=== PATIENT | male | born 1930 | race Caucasian/White ===

== ENCOUNTER 2017-09-20 06:59 | Inpatient (IN) ==
[2017-09-20] MEDS ORDERED: FUROSEMIDE 100 MG/10 ML VIAL IV STA (07:43)
[2017-09-20 08:14] LABS: Basophils # 0.1 10*3/uL (0.0-0.2); Eosinophils # 0.2 10*3/uL (0.0-0.87); Eosinophils % 2.2 % (0.00-10.9); Hematocrit 47.2 VOL% (42.0-52.0); Hemoglobin 15.1 GM/DL (14.0-18.0); Immature Granulocytes % 0.5 %; Immature Granulocytes Absolute 0.05 #; Lymphocytes # 2.2 10*3/uL (1.4-4.0); Lymphocytes % 21.5 % (21.2-54.2); Mean Corpuscular Hemoglobin 29 PG (27-34); Mean Corpuscular Volume 90.8 FL (87-102); Mean Platelet Volume 13.9 FL (9.6-12.0); Monocytes # 0.8 10*3/uL (0.11-0.8); Monocytes % 7.4 % (1.7-12.7); Neutrophils # 6.8 10*3/uL (1.4-7.4); Neutrophils % 67.4 % (38.7-73.9); Platelet Count 159 T/CUMM (130-400); Red Cell Distribution Width 12.5 % (9.3-17.3); White Blood Count 10.1 T/CUMM (4-12)
[2017-09-20 08:25] LABS: PT Patient Result 10.7 SECS
[2017-09-20 08:30] LABS: Albumin 3.5 G/DL (3.4-5.0); Bilirubin,Total 0.4 MG/DL (0.2-1.0); Calcium 8.9 MG/DL (8.5-10.1); Potassium 4.6 MMOL/L (3.5-5.1); Total Protein 7.3 G/DL (6.4-8.3)
[2017-09-20] MEDS ORDERED: FEXOFENADINE 180 MG TABLET PO PRN (09:00)
[2017-09-20] MEDS ORDERED: ACETAMINOPHEN 325 MG TABLET PO PRN (09:56)
[2017-09-20] MEDS ORDERED: ONDANSETRON 4 MG/2 ML VIAL IV PRN (09:56)
[2017-09-20] MEDS ORDERED: ZALEPLON 5 MG CAPSULE PO PRN (09:56)
[2017-09-20] MEDS ORDERED: MAGNESIUM SULF RIDER 4 GM in PREMIX 1 EACH IV PRN ×2 (09:56→17:06)
[2017-09-20] MEDS ORDERED: BISACODYL 5 MG TABLET PO PRN (09:56)
[2017-09-20] MEDS ORDERED: guaiFENesin/DM ER 600-30 MG TABLET PO PRN (09:56)
[2017-09-20] MEDS ORDERED: MAGNESIUM SULF RIDER 2 GM in PREMIX 1 EACH IV PRN ×2 (09:56→17:06)
[2017-09-20] MEDS ORDERED: ENOXAPARIN 80 MG/0.8 ML SYRINGE SUBCUT ONE (10:01)
[2017-09-20] MEDS ORDERED: POTASSIUM CHLORIDE 20 MEQ TABLET PO PRN (10:02)
[2017-09-20] MEDS ORDERED: DEXTROSE 50% 25 GM/50 ML VIAL IV PRN (10:08)
[2017-09-20] MEDS ORDERED: GLUCAGON 1 MG VIAL IM PRN (10:08)
[2017-09-20] MEDS ORDERED: FAMOTIDINE 20 MG/2 ML VIAL IV SCH (10:30)
[2017-09-20] MEDS: methylPREDNISolone SOD SUC 40 MG/1 ML VIAL IV SCH ×2 (10:38→20:31)
[2017-09-20] MEDS: diphenhydrAMINE CAP 50 MG CAPSULE PO SCH ×2 (10:38→20:30)
[2017-09-20] MEDS ORDERED: DIAZEPAM 5 MG TABLET PO ONE (14:06)
[2017-09-20] MEDS ORDERED: ASPIRIN 325 MG TABLET PO ONE (14:06)
[2017-09-20] MEDS ORDERED: fentaNYL 100 MCG/2 ML VIAL ONE (14:14)
[2017-09-20] MEDS ORDERED: MIDAZOLAM 2 MG/2 ML VIAL ONE (14:14)
[2017-09-20] MEDS ORDERED: SODIUM CHLORIDE 0.9% 1,000 ML IV SCH (14:30)
[2017-09-20] MEDS ORDERED: HEPARIN/NACL 0.9% 2 UNITS/ML 500 ML IV ONE (15:09)
[2017-09-20] MEDS ORDERED: TIROFIBAN 5,000 MCG/100 ML PREMIX IV ONE (15:30)
[2017-09-20] MEDS ORDERED: TIROFIBAN 5,000 MCG/100 ML PREMIX IV SCH (15:38)
[2017-09-20] MEDS ORDERED: HEPARIN 5,000 UNIT/1 ML VIAL ONE (15:41)
[2017-09-20] MEDS ORDERED: FUROSEMIDE 40 MG/4 ML VIAL IV ONE (16:00)
[2017-09-20] MEDS ORDERED: CLOPIDOGREL 300 MG TABLET ONE (16:31)
[2017-09-20] MEDS ORDERED: NIFEdipine 10 MG CAPSULE PO ONE (17:55)
[2017-09-20] MEDS ORDERED: CAPTOPRIL 25 MG TABLET PO ONE (18:02)
[2017-09-20] MEDS ORDERED: NIFEdipine 10 MG CAPSULE PO PRN (18:05)
[2017-09-20] MEDS: INSULIN LISPRO 100 UNIT/ML SUBCUT SCH ×2 (18:32→20:31)
[2017-09-20] MEDS: ROSUVASTATIN 10 MG TABLET PO SCH (20:30)
[2017-09-20] MEDS: MULTIVITAMIN (OCUVITE) TABLET PO SCH (20:31)
[2017-09-20] MEDS: CARVEDILOL 3.125 MG TABLET PO SCH (20:31)
[2017-09-20] MEDS: FAMOTIDINE 20 MG TABLET PO SCH (20:31)
[2017-09-20] MEDS ORDERED: ASPIRIN EC 81 MG TABLET PO SCH (21:00)
[2017-09-20] MEDS ORDERED: CLOPIDOGREL 75 MG TABLET PO SCH (21:00)
[2017-09-21] MEDS: CAPTOPRIL 25 MG TABLET PO SCH ×3 (00:57→13:28)
[2017-09-21 01:00] LABS: Apearance,Urine CLEAR (Clear); Bacteria,Urine Occasional /HPF (Few); Bilirubin,Urine Negative (Negative); Blood, Urine Moderate mg/dL (Negative); Glucose,Urine (UA) 150 mg/dL (Negative); Ketones,Urine 5 mg/dL (Negative); Nitrite,Urine Negative (Negative); Protein,Urine Negative; RBC,Urine 9 /HPF (0-4); Urine Color Straw (Yellow); Urine Specific Gravity 1.011 (1.001-1.035); Urine Urobilinogen < 2.0 EU/DL (0.2-1.0); WBC,Urine 1 /HPF (0-6)
[2017-09-21 01:25] LABS: Basophils # 0.1 10*3/uL (0.0-0.2); Basophils % 0.3 % (0.0-0.8); Hematocrit 44.5 VOL% (42.0-52.0); Hemoglobin 14.6 GM/DL (14.0-18.0); Immature Granulocytes % 0.6 %; Lymphocytes # 1.4 10*3/uL (1.4-4.0); Lymphocytes % 9.1 % (21.2-54.2); Mean Corpuscular HGB Conc 32.8 GM/DL (32-36); Mean Corpuscular Hemoglobin 30 PG (27-34); Mean Corpuscular Volume 90.1 FL (87-102); Monocytes # 0.2 10*3/uL (0.11-0.8); Monocytes % 1.5 % (1.7-12.7); Neutrophils # 13.8 10*3/uL (1.4-7.4); Neutrophils % 88.5 % (38.7-73.9); Platelet Count 176 T/CUMM (130-400); Red Blood Count 4.94 MC/CUMM (3.8-5.5); Red Cell Distribution Width 12.4 % (9.3-17.3); White Blood Count 15.6 T/CUMM (4-12)
[2017-09-21 02:01] LABS: Risk Ratio 4.03; VLDL CHOLESTEROL 27.4 MG/DL
[2017-09-21 02:02] LABS: Albumin 3.2 G/DL (3.4-5.0); Bilirubin,Total 0.5 MG/DL (0.2-1.0); Calcium 8.2 MG/DL (8.5-10.1); Osmolality,Calculated 286.5 MOS/KG (273-304); Potassium 4.2 MMOL/L (3.5-5.1); Total Protein 6.4 G/DL (6.4-8.3)
[2017-09-21] MEDS ORDERED: ENOXAPARIN 60 MG/0.6 ML SYRINGE SUBCUT ONE (06:00)
[2017-09-21] MEDS: INSULIN LISPRO 100 UNIT/ML SUBCUT SCH ×4 (08:03→21:21)
[2017-09-21] MEDS: CARVEDILOL 3.125 MG TABLET PO SCH (08:04)
[2017-09-21] MEDS: CLOPIDOGREL 75 MG TABLET PO SCH (08:04)
[2017-09-21] MEDS: FAMOTIDINE 20 MG TABLET PO SCH ×2 (08:04→21:20)
[2017-09-21] MEDS: methylPREDNISolone SOD SUC 40 MG/1 ML VIAL IV SCH (08:04)
[2017-09-21] MEDS: FUROSEMIDE 20 MG/2 ML VIAL IV SCH (08:04)
[2017-09-21] MEDS: diphenhydrAMINE CAP 50 MG CAPSULE PO SCH ×2 (08:05→21:20)
[2017-09-21] MEDS ORDERED: FUROSEMIDE 40 MG TABLET PO SCH (09:00)
[2017-09-21] MEDS ORDERED: CAPTOPRIL 6.25 MG TABLET PO SCH (09:00)
[2017-09-21] MEDS ORDERED: PANTOPRAZOLE 40 MG TABLET PO SCH (09:00)
[2017-09-21] MEDS ORDERED: ASPIRIN CHEW 81 MG TABLET PO SCH (09:00)
[2017-09-21] MEDS ORDERED: ASPIRIN EC 81 MG TABLET PO SCH (09:00)
[2017-09-21] MEDS ORDERED: ACEBUTOLOL 400 MG CAPSULE PO SCH (09:00)
[2017-09-21] MEDS ORDERED: LISINOPRIL 5 MG TABLET PO SCH (09:00)
[2017-09-21] MEDS ORDERED: ASPIRIN CHEW 81 MG TABLET PO ONE (09:00)
[2017-09-21] MEDS ORDERED: ALUM/MAG/SIMETH/LIDO VISC 1:1 30 ML BOTTLE PO ONE (18:16)
[2017-09-21] MEDS ORDERED: NITROGLYCERIN SL 0.4 MG TABLET SL PRN (18:31)
[2017-09-21] MEDS ORDERED: ALUM/MAG/SIMETH/LIDO VISC 1:1 30 ML BOTTLE PO PRN (18:32)
[2017-09-21] MEDS: CARVEDILOL 6.25 MG TABLET PO SCH (18:53)
[2017-09-21] MEDS: GABAPENTIN 100 MG CAPSULE PO SCH ×2 (18:53→21:20)
[2017-09-21] MEDS: PANTOPRAZOLE 40 MG TABLET PO SCH (18:53)
[2017-09-21] MEDS: HYOSCYAMINE 0.125 MG TABLET SL SCH ×2 (18:53→21:20)
[2017-09-21] MEDS: ACETAMINOPHEN 325 MG TABLET PO SCH ×2 (18:53→21:20)
[2017-09-21] MEDS: MULTIVITAMIN (OCUVITE) TABLET PO SCH (21:20)
[2017-09-21] MEDS: CAPTOPRIL 12.5 MG TABLET PO SCH (21:21)
[2017-09-21] MEDS: ROSUVASTATIN 10 MG TABLET PO SCH (21:21)
[2017-09-22 00:59] LABS: Basophils # 0.1 10*3/uL (0.0-0.2); Basophils % 0.3 % (0.0-0.8); Hematocrit 41.1 VOL% (42.0-52.0); Hemoglobin 13.5 GM/DL (14.0-18.0); Immature Granulocytes % 0.5 %; Lymphocytes # 2.3 10*3/uL (1.4-4.0); Lymphocytes % 12.4 % (21.2-54.2); Mean Corpuscular HGB Conc 32.8 GM/DL (32-36); Mean Corpuscular Hemoglobin 30 PG (27-34); Mean Corpuscular Volume 90.7 FL (87-102); Mean Platelet Volume 14.1 FL (9.6-12.0); Monocytes # 1.8 10*3/uL (0.11-0.8); Monocytes % 9.8 % (1.7-12.7); Neutrophils # 14.5 10*3/uL (1.4-7.4); Platelet Count 156 T/CUMM (130-400); Red Blood Count 4.53 MC/CUMM (3.8-5.5); Red Cell Distribution Width 12.6 % (9.3-17.3); White Blood Count 18.8 T/CUMM (4-12)
[2017-09-22 01:17] LABS: Albumin 2.9 G/DL (3.4-5.0); Bilirubin,Total 0.5 MG/DL (0.2-1.0); Calcium 8.3 MG/DL (8.5-10.1); Osmolality,Calculated 284.7 MOS/KG (273-304); Potassium 4.3 MMOL/L (3.5-5.1)
[2017-09-22] MEDS: CARVEDILOL 6.25 MG TABLET PO SCH ×4 (03:18→17:50)
[2017-09-22 07:44] LABS: CKMB % 6.5 %
[2017-09-22] MEDS: ACETAMINOPHEN 325 MG TABLET PO SCH ×2 (08:40→21:42)
[2017-09-22] MEDS: INSULIN LISPRO 100 UNIT/ML SUBCUT SCH ×4 (08:40→21:41)
[2017-09-22] MEDS: FAMOTIDINE 20 MG TABLET PO SCH (08:40)
[2017-09-22] MEDS: GABAPENTIN 100 MG CAPSULE PO SCH ×3 (08:40→21:34)
[2017-09-22] MEDS: HYOSCYAMINE 0.125 MG TABLET SL SCH ×2 (08:40→21:42)
[2017-09-22] MEDS: PANTOPRAZOLE 40 MG TABLET PO SCH ×2 (08:40→21:34)
[2017-09-22] MEDS: diphenhydrAMINE CAP 50 MG CAPSULE PO SCH (08:40)
[2017-09-22] MEDS: FUROSEMIDE 20 MG/2 ML VIAL IV SCH (08:40)
[2017-09-22] MEDS: CAPTOPRIL 12.5 MG TABLET PO SCH ×2 (08:42→15:34)
[2017-09-22] MEDS: CLOPIDOGREL 75 MG TABLET PO SCH (08:42)
[2017-09-22] MEDS: ROSUVASTATIN 10 MG TABLET PO SCH (21:34)
[2017-09-22] MEDS: CAPTOPRIL 6.25 MG TABLET PO SCH (21:34)
[2017-09-22] MEDS: MULTIVITAMIN (OCUVITE) TABLET PO SCH (21:34)
[2017-09-23] MEDS: CARVEDILOL 6.25 MG TABLET PO SCH ×3 (00:50→12:45)
[2017-09-23 06:17] LABS: Basophils # 0.1 10*3/uL (0.0-0.2); Basophils % 0.8 % (0.0-0.8); Eosinophils # 0.2 10*3/uL (0.0-0.87); Eosinophils % 1.3 % (0.00-10.9); Hematocrit 44.8 VOL% (42.0-52.0); Hemoglobin 14.2 GM/DL (14.0-18.0); Immature Granulocytes % 0.9 %; Immature Granulocytes Absolute 0.12 #; Lymphocytes # 2.8 10*3/uL (1.4-4.0); Lymphocytes % 22.4 % (21.2-54.2); Mean Corpuscular HGB Conc 31.7 GM/DL (32-36); Mean Corpuscular Hemoglobin 29 PG (27-34); Mean Corpuscular Volume 92.6 FL (87-102); Mean Platelet Volume 14.1 FL (9.6-12.0); Monocytes # 1.3 10*3/uL (0.11-0.8); Monocytes % 9.9 % (1.7-12.7); Neutrophils # 8.2 10*3/uL (1.4-7.4); Neutrophils % 64.7 % (38.7-73.9); Platelet Count 123 T/CUMM (130-400); Red Blood Count 4.84 MC/CUMM (3.8-5.5); Red Cell Distribution Width 12.6 % (9.3-17.3); White Blood Count 12.6 T/CUMM (4-12)
[2017-09-23 06:51] LABS: Albumin 3.1 G/DL (3.4-5.0); Bilirubin,Total 0.7 MG/DL (0.2-1.0); Calcium 8.4 MG/DL (8.5-10.1); Total Protein 6.1 G/DL (6.4-8.3)
[2017-09-23 06:52] LABS: Osmolality,Calculated 281.7 MOS/KG (273-304); Potassium 4.5 MMOL/L (3.5-5.1)
[2017-09-23 06:54] LABS: Hypochromasia Slight; Platelet Estimate Decreased
[2017-09-23] MEDS: PANTOPRAZOLE 40 MG TABLET PO SCH (09:02)
[2017-09-23] MEDS: CAPTOPRIL 6.25 MG TABLET PO SCH ×2 (09:02→15:57)
[2017-09-23] MEDS: GABAPENTIN 100 MG CAPSULE PO SCH ×2 (09:02→15:57)
[2017-09-23] MEDS: CLOPIDOGREL 75 MG TABLET PO SCH (09:02)
[2017-09-23] MEDS: ACETAMINOPHEN 325 MG TABLET PO SCH (09:02)
[2017-09-23] MEDS: FUROSEMIDE 20 MG/2 ML VIAL IV SCH (09:04)
[2017-09-23] MEDS: INSULIN LISPRO 100 UNIT/ML SUBCUT SCH ×3 (09:04→16:57)
[2017-09-23] MEDS: HYOSCYAMINE 0.125 MG TABLET SL SCH (10:13)
[2017-09-23 16:23] VITALS: BP 130/66
[2017-09-24] MEDS ORDERED: FUROSEMIDE 20 MG TABLET PO SCH (09:00)
== END 2017-09-23 17:59 | disposition home or self-care (01) | DRG 270 ==
LOC: N.ED 06:59 → N.EDINP 09:56 → N.ICU 17:30 → N.TELEN 09-22 18:30
PROVIDERS: ADMIT Internal Medicine Cardiovascular Disease; ATTEND Internal Medicine Cardiovascular Disease

== ENCOUNTER 2017-12-08 13:30 | Inpatient (IN) ==
[2017-12-08] MEDS ORDERED: ALUM/MAG/SIMETH/LIDO VISC 1:1 30 ML BOTTLE PO STA (13:45)
[2017-12-08] MEDS ORDERED: ASPIRIN 325 MG TABLET PO STA (13:45)
[2017-12-08] MEDS ORDERED: MORPHINE 4 MG/1 ML VIAL IV STA (13:45)
[2017-12-08] MEDS ORDERED: ENOXAPARIN 100 MG/ML SYRINGE SUBCUT STA (13:45)
[2017-12-08] MEDS ORDERED: NITROGLYCERIN 2% OINT 1 INCH/GM PACK TOP STA (13:45)
[2017-12-08] MEDS ORDERED: ONDANSETRON 4 MG/2 ML VIAL IV STA (13:45)
[2017-12-08] MEDS ORDERED: METOPROLOL TARTRATE 25 MG TABLET PO STA (13:45)
[2017-12-08 14:12] LABS: Basophils # 0.1 10*3/uL (0.0-0.2); Basophils % 0.8 % (0.0-0.8); Eosinophils # 0.3 10*3/uL (0.0-0.87); Eosinophils % 2.7 % (0.00-10.9); Hematocrit 46.1 VOL% (42.0-52.0); Hemoglobin 14.8 GM/DL (14.0-18.0); Immature Granulocytes % 0.3 %; Immature Granulocytes Absolute 0.03 #; Lymphocytes # 2.4 10*3/uL (1.4-4.0); Lymphocytes % 24.2 % (21.2-54.2); Mean Corpuscular HGB Conc 32.1 GM/DL (32-36); Mean Corpuscular Hemoglobin 28 PG (27-34); Mean Corpuscular Volume 86.5 FL (87-102); Mean Platelet Volume 13.6 FL (9.6-12.0); Monocytes # 0.9 10*3/uL (0.11-0.8); Monocytes % 9.5 % (1.7-12.7); Neutrophils # 6.1 10*3/uL (1.4-7.4); Neutrophils % 62.5 % (38.7-73.9); Platelet Count 181 T/CUMM (130-400); Red Blood Count 5.33 MC/CUMM (3.8-5.5); Red Cell Distribution Width 12.6 % (9.3-17.3); White Blood Count 9.8 T/CUMM (4-12)
[2017-12-08 14:21] LABS: INR 1.1; PT Patient Result 11.1 SECS
[2017-12-08 14:48] LABS: Apearance,Urine CLEAR (Clear); Bacteria,Urine Occasional /HPF (Few); Bilirubin,Urine Negative (Negative); Blood, Urine Negative (Negative); Glucose,Urine (UA) >=500 mg/dL (Negative); Hyaline Casts,Urine 11 /LPF (0-3); Ketones,Urine 5 mg/dL (Negative); Mucus,Urine Occasional /LPF (Occasional); Nitrite,Urine Negative (Negative); Protein,Urine Negative; Urine Color Yellow (Yellow); Urine Specific Gravity 1.009 (1.001-1.035); Urine Urobilinogen < 2.0 EU/DL (0.2-1.0); WBC,Urine <1 /HPF (0-6)
[2017-12-08 15:10] LABS: Alanine Aminotransferase 14 U/L (16-61); Albumin 3.4 G/DL (3.4-5.0); Alkaline Phosphatase 84 U/L (45-117); Aspartate Amino Transferase 11 U/L (0-37); Bilirubin,Total < 0.39 MG/DL (0.2-1.0); Blood Urea Nitrogen 21 MG/DL (7-18); Glucose 222 MG/DL (74-106); Osmolality,Calculated 284.7 MOS/KG (273-304); Potassium 3.8 MMOL/L (3.5-5.1); Sodium 138 MMOL/L (136-145); Total Protein 7.3 G/DL (6.4-8.3)
[2017-12-08] MEDS ORDERED: FUROSEMIDE 40 MG/4 ML VIAL IV STA (15:13)
[2017-12-08] MEDS ORDERED: ONDANSETRON 4 MG/2 ML VIAL IV PRN (21:30)
[2017-12-08] MEDS ORDERED: GLUCAGON 1 MG VIAL IM PRN (21:30)
[2017-12-08] MEDS ORDERED: ASPIRIN EC 325 MG TABLET PO SCH (21:30)
[2017-12-08] MEDS ORDERED: FEXOFENADINE 180 MG TABLET PO PRN (21:30)
[2017-12-08] MEDS ORDERED: MORPHINE 4 MG/1 ML VIAL IV PRN (21:30)
[2017-12-08] MEDS ORDERED: POTASSIUM CHLORIDE 20 MEQ TABLET PO PRN (21:30)
[2017-12-08] MEDS ORDERED: MAGNESIUM SULF RIDER 2 GM in PREMIX 1 EACH IV PRN (21:30)
[2017-12-08] MEDS ORDERED: DEXTROSE 50% 25 GM/50 ML VIAL IV PRN (21:30)
[2017-12-08] MEDS ORDERED: NITROGLYCERIN SL 0.4 MG TABLET SL PRN (21:30)
[2017-12-08] MEDS ORDERED: MAGNESIUM SULF RIDER 4 GM in PREMIX 1 EACH IV PRN (21:30)
[2017-12-08] MEDS: CARVEDILOL 12.5 MG TABLET PO SCH (22:50)
[2017-12-08] MEDS: ROSUVASTATIN 10 MG TABLET PO SCH (22:50)
[2017-12-08] MEDS: MULTIVITAMIN (OCUVITE) TABLET PO SCH (22:51)
[2017-12-08] MEDS: CLOPIDOGREL 75 MG TABLET PO SCH (22:51)
[2017-12-08] MEDS: metFORMIN 500 MG TABLET PO SCH (22:51)
[2017-12-08] MEDS: FUROSEMIDE 40 MG/4 ML VIAL IV SCH (22:51)
[2017-12-08] MEDS: ENALAPRIL 2.5 MG TABLET PO SCH (22:52)
[2017-12-08] MEDS: INSULIN REGULAR 100 UNIT/ML SUBCUT SCH (22:52)
[2017-12-09 05:09] LABS: Basophils # 0.1 10*3/uL (0.0-0.2); Basophils % 1.2 % (0.0-0.8); Eosinophils # 0.3 10*3/uL (0.0-0.87); Eosinophils % 3.1 % (0.00-10.9); Hemoglobin 13.2 GM/DL (14.0-18.0); Immature Granulocytes % 0.4 %; Immature Granulocytes Absolute 0.03 #; Lymphocytes % 24.1 % (21.2-54.2); Mean Corpuscular HGB Conc 31.4 GM/DL (32-36); Mean Corpuscular Hemoglobin 28 PG (27-34); Mean Corpuscular Volume 88.8 FL (87-102); Mean Platelet Volume 13.8 FL (9.6-12.0); Monocytes # 0.8 10*3/uL (0.11-0.8); Monocytes % 9.2 % (1.7-12.7); Neutrophils # 5.2 10*3/uL (1.4-7.4); Platelet Count 152 T/CUMM (130-400); Red Blood Count 4.73 MC/CUMM (3.8-5.5); Red Cell Distribution Width 12.5 % (9.3-17.3); White Blood Count 8.4 T/CUMM (4-12)
[2017-12-09 05:42] LABS: Alanine Aminotransferase 11 U/L (16-61); Albumin 2.9 G/DL (3.4-5.0); Alkaline Phosphatase 73 U/L (45-117); Aspartate Amino Transferase 11 U/L (0-37); Bilirubin,Total < 0.39 MG/DL (0.2-1.0); Blood Urea Nitrogen 21 MG/DL (7-18); Calcium 8.5 MG/DL (8.5-10.1); Cholesterol 98 MG/DL (50-200); Glucose 183 MG/DL (74-106); HDL Cholesterol 26 MG/DL (40-60); Osmolality,Calculated 284.5 MOS/KG (273-304); Potassium 3.8 MMOL/L (3.5-5.1); Risk Ratio 3.77; Sodium 139 MMOL/L (136-145); Total Protein 6.1 G/DL (6.4-8.3); Triglycerides 143 MG/DL (2-150); Troponin I 0.263 NG/ML (0.00-0.045); VLDL CHOLESTEROL 28.6 MG/DL
[2017-12-09] MEDS ORDERED: ENOXAPARIN 40 MG/0.4 ML SYRINGE SUBCUT SCH (09:00)
[2017-12-09] MEDS ORDERED: NON-FORMULARY MEDICATION (Esomeprazole Magnesium [Nexium] 20 MG) PO SCH (09:00)
[2017-12-09] MEDS: ENALAPRIL 2.5 MG TABLET PO SCH ×2 (09:15→21:08)
[2017-12-09] MEDS: PANTOPRAZOLE 40 MG TABLET PO SCH (09:15)
[2017-12-09] MEDS: CARVEDILOL 12.5 MG TABLET PO SCH (09:16)
[2017-12-09] MEDS: FUROSEMIDE 40 MG/4 ML VIAL IV SCH ×2 (09:16→21:14)
[2017-12-09] MEDS: INSULIN REGULAR 100 UNIT/ML SUBCUT SCH ×4 (09:20→21:09)
[2017-12-09] MEDS: metFORMIN 500 MG TABLET PO SCH ×2 (09:20→16:38)
[2017-12-09] MEDS ORDERED: AMIODARONE 200 MG TABLET PO ONE (13:44)
[2017-12-09] MEDS: APIXABAN 2.5 MG TABLET PO SCH ×2 (14:42→21:08)
[2017-12-09] MEDS: glyBURIDE 2.5 MG TABLET PO SCH (16:37)
[2017-12-09] MEDS: CARVEDILOL 25 MG TABLET PO SCH (16:37)
[2017-12-09] MEDS: MAGNESIUM CHLORIDE 64 MG TABLET PO SCH (21:08)
[2017-12-09] MEDS: CLOPIDOGREL 75 MG TABLET PO SCH (21:08)
[2017-12-09] MEDS: ROSUVASTATIN 10 MG TABLET PO SCH (21:08)
[2017-12-09] MEDS: MULTIVITAMIN (OCUVITE) TABLET PO SCH (21:08)
[2017-12-09] MEDS: AMIODARONE 200 MG TABLET PO SCH (21:09)
[2017-12-10 05:15] LABS: Calcium 8.6 MG/DL (8.5-10.1); Osmolality,Calculated 279.8 MOS/KG (273-304); Potassium 3.7 MMOL/L (3.5-5.1)
[2017-12-10 08:02] VITALS: BP 115/59
[2017-12-10] MEDS: APIXABAN 2.5 MG TABLET PO SCH (08:55)
[2017-12-10] MEDS: glyBURIDE 2.5 MG TABLET PO SCH (08:55)
[2017-12-10] MEDS: PANTOPRAZOLE 40 MG TABLET PO SCH (08:55)
[2017-12-10] MEDS: MAGNESIUM CHLORIDE 64 MG TABLET PO SCH (08:55)
[2017-12-10] MEDS: AMIODARONE 200 MG TABLET PO SCH (08:55)
[2017-12-10] MEDS: CARVEDILOL 25 MG TABLET PO SCH (08:55)
[2017-12-10] MEDS: metFORMIN 500 MG TABLET PO SCH (08:55)
[2017-12-10] MEDS: ENALAPRIL 2.5 MG TABLET PO SCH (08:56)
[2017-12-10] MEDS: FUROSEMIDE 40 MG/4 ML VIAL IV SCH (08:56)
[2017-12-10] MEDS: INSULIN REGULAR 100 UNIT/ML SUBCUT SCH ×2 (09:12→14:06)
[2017-12-10] MEDS ORDERED: MAGNESIUM SULF RIDER 2 GM in PREMIX 1 EACH IV ONE (10:06)
[2017-12-10] MEDS ORDERED: MAGNESIUM CHLORIDE 64 MG TABLET PO SCH (21:00)
== END 2017-12-10 15:52 | disposition home or self-care (01) | DRG 293 ==
LOC: N.ED 13:30 → N.EDINP 15:14 → N.TELES 17:30 → N.EDINP 17:30 → N.TELES 19:30 → N.TELEN 19:30 → N.TELES 20:59
PROVIDERS: ADMIT Internal Medicine Cardiovascular Disease; ATTEND Internal Medicine Cardiovascular Disease

== ENCOUNTER 2018-06-19 11:32 | Observation (INO) ==
[2018-06-19 12:11] LABS: Basophils # 0.1 10*3/uL (0.0-0.2); Basophils % 0.8 % (0.0-0.8); Eosinophils # 0.3 10*3/uL (0.0-0.87); Eosinophils % 2.5 % (0.00-10.9); Hematocrit 41.8 VOL% (42.0-52.0); Hemoglobin 13.1 GM/DL (14.0-18.0); Immature Granulocytes % 0.3 %; Immature Granulocytes Absolute 0.03 #; Lymphocytes # 1.8 10*3/uL (1.4-4.0); Lymphocytes % 17.7 % (21.2-54.2); Mean Corpuscular HGB Conc 31.3 GM/DL (32-36); Mean Corpuscular Hemoglobin 28 PG (27-34); Mean Corpuscular Volume 90.5 FL (87-102); Mean Platelet Volume 12.6 FL (9.6-12.0); Monocytes # 1.1 10*3/uL (0.11-0.8); Monocytes % 11.1 % (1.7-12.7); Neutrophils # 6.9 10*3/uL (1.4-7.4); Neutrophils % 67.6 % (38.7-73.9); Platelet Count 236 T/CUMM (130-400); Red Blood Count 4.62 MC/CUMM (3.8-5.5); Red Cell Distribution Width 12.4 % (9.3-17.3); White Blood Count 10.2 T/CUMM (4-12)
[2018-06-19 12:20] LABS: INR 1.1; PT Patient Result 11.4 SECS
[2018-06-19 12:36] LABS: Alanine Aminotransferase 37 U/L (16-61); Albumin 3.2 G/DL (3.4-5.0); Alkaline Phosphatase 131 U/L (45-117); Aspartate Amino Transferase 28 U/L (0-37); Blood Urea Nitrogen 21 MG/DL (7-18); Glucose 242 MG/DL (74-106); Osmolality,Calculated 272.7 MOS/KG (273-304); Sodium 131 MMOL/L (136-145); Total Protein 7.4 G/DL (6.4-8.3)
[2018-06-19 12:37] LABS: Troponin I 0.056 NG/ML (0.00-0.045)
[2018-06-19] MEDS ORDERED: LEVOFLOXACIN INJ 750 MG in PREMIX 1 EACH IV STA (12:48)
[2018-06-19] MEDS ORDERED: FUROSEMIDE 40 MG/4 ML VIAL IV STA (13:01)
[2018-06-19] MEDS ORDERED: ACETAMINOPHEN 325 MG TABLET PO PRN (14:38)
[2018-06-19] MEDS ORDERED: NITROGLYCERIN SL 0.4 MG TABLET SL PRN (14:42)
[2018-06-19 15:54] LABS: Apearance,Urine CLEAR (Clear); Bilirubin,Urine Negative (Negative); Blood, Urine Negative (Negative); Glucose,Urine (UA) >=500 mg/dL (Negative); Hyaline Casts,Urine 1 /LPF (0-3); Ketones,Urine Negative (Negative); Mucus,Urine Occasional /LPF (Occasional); Nitrite,Urine Negative (Negative); Protein,Urine Negative; RBC,Urine 1 /HPF (0-4); Urine Color Straw (Yellow); Urine Specific Gravity 1.007 (1.001-1.035); Urine Urobilinogen < 2.0 EU/DL (0.2-1.0); WBC,Urine <1 /HPF (0-6)
[2018-06-19] MEDS: CARVEDILOL 25 MG TABLET PO SCH (18:32)
[2018-06-19] MEDS: MIDODRINE 5 MG TABLET PO SCH ×2 (20:24→21:40)
[2018-06-19] MEDS ORDERED: MULTIVITAMIN (OCUVITE) TABLET PO SCH (21:00)
[2018-06-19] MEDS ORDERED: IMIPRAMINE 25 MG TABLET PO SCH (21:00)
[2018-06-19] MEDS ORDERED: AMIODARONE 200 MG TABLET PO SCH (21:00)
[2018-06-19] MEDS ORDERED: ROSUVASTATIN 10 MG TABLET PO SCH (21:00)
[2018-06-19] MEDS ORDERED: CLOPIDOGREL 75 MG TABLET PO SCH (21:00)
[2018-06-19] MEDS: MAGNESIUM CHLORIDE 64 MG TABLET PO SCH (21:40)
[2018-06-19] MEDS: ENALAPRIL 2.5 MG TABLET PO SCH (21:41)
[2018-06-19] MEDS: APIXABAN 2.5 MG TABLET PO SCH (21:41)
[2018-06-20 05:48] LABS: Basophils # 0.1 10*3/uL (0.0-0.2); Basophils % 0.8 % (0.0-0.8); Eosinophils # 0.4 10*3/uL (0.0-0.87); Eosinophils % 3.9 % (0.00-10.9); Hematocrit 37.9 VOL% (42.0-52.0); Hemoglobin 11.8 GM/DL (14.0-18.0); Immature Granulocytes % 0.3 %; Immature Granulocytes Absolute 0.03 #; Lymphocytes # 2.1 10*3/uL (1.4-4.0); Lymphocytes % 23.1 % (21.2-54.2); Mean Corpuscular HGB Conc 31.1 GM/DL (32-36); Mean Corpuscular Hemoglobin 28 PG (27-34); Mean Corpuscular Volume 90.5 FL (87-102); Mean Platelet Volume 12.5 FL (9.6-12.0); Monocytes # 1.3 10*3/uL (0.11-0.8); Monocytes % 14.1 % (1.7-12.7); Neutrophils # 5.2 10*3/uL (1.4-7.4); Neutrophils % 57.8 % (38.7-73.9); Platelet Count 225 T/CUMM (130-400); Red Blood Count 4.19 MC/CUMM (3.8-5.5); Red Cell Distribution Width 12.2 % (9.3-17.3)
[2018-06-20 06:14] LABS: Calcium 8.7 MG/DL (8.5-10.1); Osmolality,Calculated 276.2 MOS/KG (273-304); Potassium 3.7 MMOL/L (3.5-5.1); Thyroid Stimulating Hormone 3.12 uIU/ml (0.358-3.74)
[2018-06-20] MEDS ORDERED: GLIMEPIRIDE 2 MG TABLET PO SCH (08:00)
[2018-06-20] MEDS ORDERED: FUROSEMIDE 40 MG/4 ML VIAL IV SCH ×2 (09:00)
[2018-06-20] MEDS ORDERED: PANTOPRAZOLE 40 MG TABLET PO SCH (09:00)
[2018-06-20] MEDS ORDERED: AMIODARONE 200 MG TABLET PO SCH (09:00)
[2018-06-20] MEDS: APIXABAN 2.5 MG TABLET PO SCH (09:52)
[2018-06-20] MEDS: MIDODRINE 5 MG TABLET PO SCH ×2 (09:52→14:50)
[2018-06-20] MEDS: MAGNESIUM CHLORIDE 64 MG TABLET PO SCH (09:52)
[2018-06-20] MEDS: CARVEDILOL 25 MG TABLET PO SCH (09:52)
[2018-06-20] MEDS: ENALAPRIL 2.5 MG TABLET PO SCH (13:05)
[2018-06-20 16:36] VITALS: BP 152/71
== END 2018-06-20 15:29 | disposition home or self-care (01) ==
LOC: N.ED 11:32 → N.EDINP 11:32 → SUATTDRO 14:00 → N.5E 17:29
PROVIDERS: ADMIT Internal Medicine Nephrology; ATTEND Hospitalist

== ENCOUNTER 2018-06-29 11:27 | Observation (INO) ==
[2018-06-29 12:38] LABS: Basophils # 0.1 10*3/uL (0.0-0.2); Eosinophils # 0.3 10*3/uL (0.0-0.87); Eosinophils % 3.4 % (0.00-10.9); Hematocrit 38.9 VOL% (42.0-52.0); Hemoglobin 12.1 GM/DL (14.0-18.0); Immature Granulocytes % 0.5 %; Immature Granulocytes Absolute 0.04 #; Lymphocytes # 1.8 10*3/uL (1.4-4.0); Lymphocytes % 21.3 % (21.2-54.2); Mean Corpuscular HGB Conc 31.1 GM/DL (32-36); Mean Corpuscular Hemoglobin 28 PG (27-34); Mean Corpuscular Volume 89.4 FL (87-102); Mean Platelet Volume 12.1 FL (9.6-12.0); Monocytes # 0.7 10*3/uL (0.11-0.8); Monocytes % 8.4 % (1.7-12.7); Neutrophils # 5.7 10*3/uL (1.4-7.4); Neutrophils % 65.4 % (38.7-73.9); Platelet Count 237 T/CUMM (130-400); Red Blood Count 4.35 MC/CUMM (3.8-5.5); Red Cell Distribution Width 12.4 % (9.3-17.3); White Blood Count 8.7 T/CUMM (4-12)
[2018-06-29 12:50] LABS: INR 1.1; PT Patient Result 12.2 SECS; Partial Thromboplastin Time 32.9 SECS (0-40)
[2018-06-29 13:02] LABS: Alanine Aminotransferase 50 U/L (16-61); Albumin 3.2 G/DL (3.4-5.0); Alkaline Phosphatase 127 U/L (45-117); Aspartate Amino Transferase 45 U/L (0-37); Bilirubin,Total < 0.39 MG/DL (0.2-1.0); Blood Urea Nitrogen 28 MG/DL (7-18); Calcium 8.3 MG/DL (8.5-10.1); Glucose 275 MG/DL (74-106); Osmolality,Calculated 277.7 MOS/KG (273-304); Potassium 4.1 MMOL/L (3.5-5.1); Sodium 131 MMOL/L (136-145); Total Protein 7.1 G/DL (6.4-8.3)
[2018-06-29] MEDS ORDERED: ONDANSETRON 4 MG/2 ML VIAL IV STA (13:15)
[2018-06-29] MEDS ORDERED: MORPHINE 4 MG/1 ML VIAL IV STA (13:15)
[2018-06-29] MEDS ORDERED: NITROGLYCERIN 2% OINT 1 INCH/GM PACK TOP STA (13:15)
[2018-06-29] MEDS ORDERED: MAGNESIUM SULF RIDER 4 GM in PREMIX 1 EACH IV PRN (14:54)
[2018-06-29] MEDS ORDERED: DOCUSATE SODIUM 100 MG CAPSULE PO PRN (14:54)
[2018-06-29] MEDS ORDERED: POTASSIUM CHLORIDE 20 MEQ TABLET PO PRN (14:54)
[2018-06-29] MEDS ORDERED: ACETAMINOPHEN 325 MG TABLET PO PRN (14:54)
[2018-06-29] MEDS ORDERED: MAGNESIUM SULF RIDER 2 GM in PREMIX 1 EACH IV PRN (14:54)
[2018-06-29] MEDS ORDERED: ZALEPLON 5 MG CAPSULE PO PRN (14:54)
[2018-06-29] MEDS ORDERED: NITROGLYCERIN SL 0.4 MG TABLET SL PRN (14:58)
[2018-06-29] MEDS ORDERED: FUROSEMIDE 40 MG/4 ML VIAL IV STA (15:18)
[2018-06-29] MEDS ORDERED: ENOXAPARIN 60 MG/0.6 ML SYRINGE SUBCUT ONE (15:25)
[2018-06-29] MEDS ORDERED: ASPIRIN CHEW 81 MG TABLET PO STA (15:36)
[2018-06-29 16:06] LABS: Troponin I 0.156 NG/ML (0.00-0.045)
[2018-06-29] MEDS ORDERED: CARVEDILOL 25 MG TABLET PO SCH (17:00)
[2018-06-29] MEDS: MIDODRINE 5 MG TABLET PO SCH ×2 (17:57→21:38)
[2018-06-29] MEDS: CARVEDILOL 6.25 MG TABLET PO SCH (17:58)
[2018-06-29] MEDS: INSULIN REGULAR 100 UNIT/ML SUBCUT SCH ×2 (17:58→21:51)
[2018-06-29] MEDS ORDERED: metOLazone 5 MG TABLET PO ONE (18:48)
[2018-06-29] MEDS ORDERED: ROSUVASTATIN 10 MG TABLET PO SCH (21:00)
[2018-06-29] MEDS ORDERED: MULTIVITAMIN (OCUVITE) TABLET PO SCH (21:00)
[2018-06-29] MEDS ORDERED: IMIPRAMINE 25 MG TABLET PO SCH (21:00)
[2018-06-29] MEDS ORDERED: CLOPIDOGREL 75 MG TABLET PO SCH (21:00)
[2018-06-29] MEDS: MAGNESIUM CHLORIDE 64 MG TABLET PO SCH (21:39)
[2018-06-29] MEDS: ENALAPRIL 2.5 MG TABLET PO SCH (21:45)
[2018-06-30 00:10] LABS: Troponin I 0.121 NG/ML (0.00-0.045)
[2018-06-30 04:49] LABS: Basophils # 0.1 10*3/uL (0.0-0.2); Basophils % 1.2 % (0.0-0.8); Eosinophils # 0.5 10*3/uL (0.0-0.87); Eosinophils % 5.4 % (0.00-10.9); Hematocrit 38.8 VOL% (42.0-52.0); Hemoglobin 12.1 GM/DL (14.0-18.0); Immature Granulocytes % 0.2 %; Immature Granulocytes Absolute 0.02 #; Lymphocytes # 2.1 10*3/uL (1.4-4.0); Lymphocytes % 21.8 % (21.2-54.2); Mean Corpuscular HGB Conc 31.2 GM/DL (32-36); Mean Corpuscular Hemoglobin 28 PG (27-34); Mean Corpuscular Volume 88.2 FL (87-102); Mean Platelet Volume 12.8 FL (9.6-12.0); Monocytes % 10.2 % (1.7-12.7); Neutrophils % 61.2 % (38.7-73.9); Platelet Count 248 T/CUMM (130-400); Red Cell Distribution Width 12.4 % (9.3-17.3); White Blood Count 9.8 T/CUMM (4-12)
[2018-06-30 05:01] LABS: Calcium 8.5 MG/DL (8.5-10.1); Osmolality,Calculated 272.4 MOS/KG (273-304); Potassium 3.7 MMOL/L (3.5-5.1)
[2018-06-30 05:02] LABS: Albumin 3.1 G/DL (3.4-5.0); Bilirubin,Direct 0.1 MG/DL (0.0-0.20); Bilirubin,Indirect 0.9 MG/DL (0.0-1.0); Total Protein 6.8 G/DL (6.4-8.3)
[2018-06-30 05:08] LABS: Calcium 8.6 MG/DL (8.5-10.1); Osmolality,Calculated 272.4 MOS/KG (273-304); Potassium 3.7 MMOL/L (3.5-5.1); Risk Ratio 4.73; VLDL CHOLESTEROL 21.6 MG/DL
[2018-06-30 07:31] LABS: Troponin I 0.116 NG/ML (0.00-0.045)
[2018-06-30] MEDS ORDERED: FUROSEMIDE 40 MG TABLET PO SCH (08:00)
[2018-06-30] MEDS ORDERED: PANTOPRAZOLE 40 MG TABLET PO SCH (09:00)
[2018-06-30] MEDS ORDERED: ASPIRIN CHEW 81 MG TABLET PO SCH (09:00)
[2018-06-30] MEDS ORDERED: AMIODARONE 200 MG TABLET PO SCH (09:00)
[2018-06-30] MEDS: MIDODRINE 5 MG TABLET PO SCH ×2 (09:04→14:46)
[2018-06-30] MEDS: MAGNESIUM CHLORIDE 64 MG TABLET PO SCH ×2 (09:05→09:10)
[2018-06-30] MEDS: CARVEDILOL 6.25 MG TABLET PO SCH (09:08)
[2018-06-30] MEDS: ENALAPRIL 2.5 MG TABLET PO SCH (09:08)
[2018-06-30] MEDS ORDERED: ROSUVASTATIN 10 MG TABLET PO SCH (11:17)
[2018-06-30 11:27] VITALS: BP 119/64
[2018-06-30] MEDS: INSULIN REGULAR 100 UNIT/ML SUBCUT SCH ×2 (12:19→12:20)
[2018-06-30] MEDS ORDERED: INFLUENZA VIRUS VACCINE 0.5 ML SYRINGE IM ONE (17:41)
== END 2018-06-30 16:14 | disposition home or self-care (01) ==
LOC: N.ED 11:27 → N.EDINP 11:27 → N.TELEN 17:02
PROVIDERS: ADMIT Internal Medicine Cardiovascular Disease; ATTEND Internal Medicine Cardiovascular Disease